=== PATIENT | female | born 1995 | race African-American/Black ===

== ENCOUNTER 2017-11-12 13:06 | Emergency (ER) | payer SELFPAY ==
[~2017-11-12] VITALS: Ht 152.4 cm; Wt 63.6 kg
[~2017-11-12 13:06] MED LIST: DIFL150T PO; LO LTAB PO
[2017-11-12 13:35] VITALS: BP 127/78; PULSE 76; RESP 18; TEMP 99.1; O2SAT 96
[2017-11-12 14:44] LABS: AUTOMATED NEUTROPHIL # 5.2 TH/MM3 (1.8-7.7); BASOPHIL % 0.3 % (0.0-2.0); EOSINOPHIL % 0.1 % (0.0-4.0); HEMATOCRIT 41.7 % (35.0-46.0); LYMPHOCYTE # 1.9 TH/MM3 (1.0-4.8); MEAN CELL VOLUME 87.4 FL (80.0-100.0); MEAN CORPUSCULAR HEMOGLOBIN 29.3 PG (27.0-34.0); MEAN CORPUSCULAR HGB CONC 33.5 % (32.0-36.0); MEAN PLATELET VOLUME 8.2 FL (7.0-11.0); MONOCYTE # 0.3 TH/MM3 (0-0.9); NEUT % 69.6 % (16.0-70.0); PLATELET COUNT 373 TH/MM3 (150-450); RED BLOOD COUNT 4.78 MIL/MM3 (4.00-5.30); RED CELL DISTRIBUTION WIDTH 14.4 % (11.6-17.2); WHITE BLOOD COUNT 7.4 TH/MM3 (4.0-11.0)
[2017-11-12 14:55] LABS: ALBUMIN 4.2 GM/DL (3.4-5.0); ALT (GPT) 17 U/L (10-53); AST (GOT) 13 U/L (15-37); BICARBONATE 22.1 MEQ/L (21.0-32.0); BLOOD UREA NITROGEN 8 MG/DL (7-18); CALCIUM 9.2 MG/DL (8.5-10.1); CHLORIDE 107 MEQ/L (98-107); CREATININE 0.82 MG/DL (0.50-1.00); GLOMERULAR FILTRATION RATE 88 ML/MIN (>89); GLUCOSE,RANDOM 75 MG/DL (74-106); SODIUM (NA) 138 MEQ/L (136-145)
[2017-11-12 14:56] LABS: BACTERIA, URINE RARE /hpf; BILIRUBIN, URINE NEG (NEG); BLOOD, URINE NEG (NEG); GLUCOSE,URINE NEG (NEG); KETONE, URINE NEG (NEG); MUCUS URINE FEW /lpf (OCC); NITRITE,URINE NEG (NEG); SQUAMOUS EPITHELIAL CELL URINE 2 /hpf (0-5); URINE COLOR YELLOW (YELLW/STRAW); URINE LEUKOCYTE ESTERASE TRACE (NEG)
[2017-11-12 14:58] LABS: ALKALINE PHOSPHATASE 68 U/L (45-117); TOTAL BILIRUBIN ADULT 0.5 MG/DL (0.2-1.0); TOTAL PROTEIN 8.6 GM/DL (6.4-8.2)
[2017-11-12] MEDS ORDERED: cefTRIAXone 250 MG VIAL IM ONE (16:45)
[2017-11-12] MEDS ORDERED: AZITHROMYCIN PWD FOR SUSP 1 GM PACKET PO ONE (16:45)
[2017-11-12] MEDS ORDERED: KETOROLAC TROMETHAMINE 60 MG/2 ML (IM) VIAL IM ONE (16:45)
[2017-11-12] MEDS ORDERED: LIDOCAINE HCL 1% 50 ML VIAL IM ONE (16:45)
--- NOTE | 2017-11-12 16:49 | PD ---
HPI Chief Complaint: Abdominal Pain Time Seen by Provider: 16:31 Travel History International Travel<30 days: No Contact w/Intl Traveler<30days: No Traveled to known affect area: No History of Present Illness HPI 22-year-old female presents to the emergency room for evaluation of worsening pelvic pain over the past 2 weeks. Pain is constant, nonradiating. States it feels kind of like a menstrual cramp but quality is different. Occasionally sharp or stabbing in nature. Patient has not taken anything for symptoms. There are no alleviating or aggravating symptoms. She denies fever, chills, nausea, vomiting, diarrhea, dysuria, urgency, frequency, or vaginal discharge. She denies any chronic medical conditions or daily medications. Denies possibility of . Patient is taking control. Her last menstrual cycle was a few months ago because of her control. She has 1 sexual partner. PFSH Past Medical History Diminished Hearing: No Tetanus Vaccination: Unknown Influenza Vaccination: No ?: Unknown LMP: a couple of months ago Social History Alcohol Use: No Tobacco Use: No Substance Use: No Allergies-Medications (Allergen,Severity, Reaction): Coded Allergies: No Known Allergies (Unverified , 08/05/15) Reported Meds & Prescriptions Reported Meds & Active Scripts Active No Active Prescriptions or Reported Medications Review of Systems Except as stated in HPI: all other systems reviewed are Neg Physical Exam Narrative GENERAL: Well-nourished, well-developed female no acute distress. Afebrile. Ambulatory. SKIN: Focused skin assessment warm/dry. HEAD: Normocephalic. EYES: No scleral icterus. No injection or drainage. NECK: Supple, trachea midline. No JVD or lymphadenopathy. CARDIOVASCULAR: Regular rate and rhythm without murmurs, gallops, or rubs. RESPIRATORY: Breath sounds equal bilaterally. No accessory muscle use. GASTROINTESTINAL: Abdomen soft, nondistended. Mild tenderness to palpation over the pelvic region. GENITOURINARY: Examined in the presence of a nurse. Normal external genitalia without lesions or erythema. Vaginal vault without blood but with mild to moderate foul-smelling drainage. Cervical os was closed with the same drainage. No cervical motion tenderness. Uterus nontender and nonenlarged. Bilateral adnexa nontender without masses. Data Data Last Documented VS Vital Signs Date Time Temp Pulse Resp B/P (MAP) Pulse Ox O2 Delivery O2 Flow Rate FiO2 3/12/18 16:05 18 11/12/17 13:35 99.1 76 127/78 (94) 96 Orders Orders Complete Blood Count With Diff (11/12/17 13:37) Comprehensive Metabolic Panel (11/12/17 13:37) Lipase (11/12/17 13:37) Urinalysis - C+S If Indicated (11/12/17 13:37) Ed Urine Pregnancytest Poc (11/12/17 13:37) Gc And Chlamydia Pcr (11/12/17 16:40) Wet Prep Profile (11/12/17 16:40) Azithromycin Powd Pack (Zithromax Powd P (11/12/17 16:45) Ceftriaxone Inj (Rocephin Inj) (11/12/17 16:45) Lidocaine 1% Inj (50 Ml) (Xylocaine 1% I (11/12/17 16:45) Ketorolac Inj (Toradol Inj) (11/12/17 16:45) Labs Laboratory Tests Test 11/12/17 14:15 11/12/17 17:05 White Blood Count 7.4 TH/MM3 Red Blood Count 4.78 MIL/MM3 Hemoglobin 14.0 GM/DL Hematocrit 41.7 % Mean Corpuscular Volume 87.4 FL Mean Corpuscular Hemoglobin 29.3 PG Mean Corpuscular Hemoglobin Concent 33.5 % Red Cell Distribution Width 14.4 % Platelet Count 373 TH/MM3 Mean Platelet Volume 8.2 FL Neutrophils (%) (Auto) 69.6 % Lymphocytes (%) (Auto) 26.0 % Monocytes (%) (Auto) 4.0 % Eosinophils (%) (Auto) 0.1 % Basophils (%) (Auto) 0.3 % Neutrophils # (Auto) 5.2 TH/MM3 Lymphocytes # (Auto) 1.9 TH/MM3 Monocytes # (Auto) 0.3 TH/MM3 Eosinophils # (Auto) 0.0 TH/MM3 Basophils # (Auto) 0.0 TH/MM3 CBC Comment DIFF FINAL Differential Comment Urine Color YELLOW Urine Turbidity CLEAR Urine pH 6.0 Urine Specific [place] 1.013 Urine Protein NEG mg/dL Urine Glucose (UA) NEG mg/dL Urine Ketones NEG mg/dL Urine Occult Blood NEG Urine Nitrite NEG Urine Bilirubin NEG Urine Urobilinogen LESS THAN 2.0 MG/DL Urine Leukocyte Esterase TRACE Urine WBC LESS THAN 1 /hpf Urine Squamous Epithelial Cells 2 /hpf Urine Bacteria RARE /hpf Urine Mucus FEW /lpf Microscopic Urinalysis Comment CULT NOT INDICATED Blood Urea Nitrogen 8 MG/DL Creatinine 0.82 MG/DL Random Glucose 75 MG/DL Total Protein 8.6 GM/DL Albumin 4.2 GM/DL Calcium Level 9.2 MG/DL Alkaline Phosphatase 68 U/L Aspartate Amino Transf (AST/SGOT) 13 U/L Alanine Aminotransferase (ALT/SGPT) 17 U/L Total Bilirubin 0.5 MG/DL Sodium Level 138 MEQ/L Potassium Level 3.9 MEQ/L Chloride Level 107 MEQ/L Carbon Dioxide Level 22.1 MEQ/L Anion Gap 9 MEQ/L Estimat Glomerular Filtration Rate 88 ML/MIN Lipase 158 U/L Clue Cells (Wet Prep) NONE SEEN Vaginal Trichomonas (Wet Prep) NONE SEEN Vaginal Yeast (Wet Prep) NONE SEEN MDM Medical Decision Making Medical Screen Exam Complete: Yes Emergency Medical Condition: Yes Medical Record Reviewed: Yes Differential Diagnosis UTI, pelvic inflammatory disease, STD, muscle strain, Narrative Course 22-year-old female presents to the emergency room for evaluation of nonradiating pelvic pain for the past 2 weeks. Denies any vaginal discharge. Patient denies any associated symptoms. Physical exam is reassuring. Patient resting comfortably and moving easily on the bed. There is mild tenderness to palpation of the pelvic region but no rebound tenderness or guarding. Pelvic exam reveals mild foul-smelling discharge from the cervix. No cervical motion tenderness. No adnexal tenderness. ED urine test is negative. CBC, CMP are unremarkable. UA shows no real evidence of urinary tract infection. Wet prep is negative. Patient tested for chlamydia and gonorrhea and treated empirically with ceftriaxone and azithromycin. I spoke to my attending physician, Dr. Marquez, who does not feel there is any emergent indication for imaging at this time. Patient may have endometriosis, fibroids, or ovarian cyst. She was told to follow-up with a heading and priming tool setter or return for worsening symptoms. She understands and agrees to plan. 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 Take ibuprofen with food as directed, as needed for pain. Doxycycline as directed. Follow-up with a primary care physician. Return to the emergency room for worsening symptoms. Scripts No Active Prescriptions or Reported Meds Disposition: DISCHARGE HOME Condition: Stable Lilli Contreras Nov 12, 2017 16:49
[2017-11-12] MEDS ORDERED: DOXY100C PO (17:41)
== END 2017-11-12 17:57 | disposition home or self-care (01) ==
LOC: NEPD 13:06
DX: R10.2 Pelvic and perineal pain (principal)
CPT/HCPCS: 80053; 81001; 83690; 84703; 85025; 87210; 87491; 87591; 96372; 99284; J0696